=== PATIENT | female | born 1970 | race Hispanic/Latino ===

== ENCOUNTER 2024-03-27 17:55 | Emergency (ER) | payer BC ==
[~2024-03-27] VITALS: Ht 157.5 cm; Wt 83.9 kg
[2024-03-27 18:38] LABS: BASOPHILS % 0.4 % (0.0-1.0); EOSINOPHILS # (AUTO) 0.2 (0.0-0.4); EOSINOPHILS % 1.7 % (0.0-6.0); HEMATOCRIT 43.6 % (34.2-44.1); HEMOGLOBIN 13.7 g/dL (12.0-16.0); LYMPHOCYTES # (AUTO) 5.4 (1.0-3.2); LYMPHOCYTES % 47.5 % (18.0-39.1); MEAN CORPUSCULAR HEMOGLOBIN 30.2 pg (28-32); MEAN CORPUSCULAR HGB CONC 31.4 g/dL (31-35); MONOCYTES # (AUTO) 0.7 (0.2-0.8); MONOCYTES % 5.7 % (4.4-11.3); NEUTROPHILS # (AUTO) 5.1 (2.1-6.9); NEUTROPHILS % 44.5 % (38.7-80.0); PLATELET COUNT 305 x10e3/uL (140-360); RED BLOOD COUNT 4.54 x10e6/uL (3.6-5.1); RED CELL DISTRIBUTION WIDTH 11.9 % (11.7-14.4); WHITE BLOOD COUNT 11.38 x10e3/uL (4.8-10.8)
[2024-03-27 18:52] LABS: ALANINE AMINOTRANSFERASE 33 IU/L (0-55); ALBUMIN 4.4 g/dL (3.5-5.0); ALBUMIN/GLOBULIN RATIO 1.2 (0.8-2.0); ALKALINE PHOSPHATASE 97 IU/L (40-150); ANION GAP 17.5 mmol/L (8-16); BILIRUBIN,TOTAL 1.1 mg/dL (0.2-1.2); BLOOD UREA NITROGEN 16 mg/dL (7-26); BUN/CREATININE RATIO 23 (6-25); CALCIUM 10.7 mg/dL (8.4-10.2); CARBON DIOXIDE 22 mmol/L (22-29); CHLORIDE 103 mmol/L (98-107); CREATINE KINASE 83 IU/L (29-168); EST GLOMERULAR FILTRATION RATE 103 ML/MIN (>=60); GLUCOSE 111 mg/dL (74-118); POTASSIUM 3.5 mmol/L (3.5-5.1); SODIUM 139 mmol/L (136-145); TOTAL PROTEIN 8.1 g/dL (6.5-8.1)
[2024-03-27 19:00] LABS: TROPONIN I < 0.001 ng/mL (0-0.300)
[2024-03-27 19:10] VITALS: PULSE 83; RESP 15; TEMP 98
[2024-03-27] MEDS: KETOROLAC TROMETHAMINE 30 MG/ML VIAL IV STA (19:15)
[2024-03-27] MEDS ORDERED: NAPROSYN500 MG PO (20:06)
[2024-03-27 20:19] VITALS: BP 120/76; PULSE 85; RESP 15; TEMP 97.7; O2SAT 97
[2024-03-27 20:22] LABS: LYMPHOCYTES % (MANUAL) 40 % (19-48); MONOCYTES % (MANUAL) 7 % (3.4-9.0); NEUTROPHILS % (MANUAL) 53 % (40-74); PLATELET ESTIMATE ADEQUATE; PLATELET MORPHOLOGY COMMENT NORMAL; RBC MORPHOLOGY COMMENT NORMAL
== END 2024-03-27 20:25 | disposition home or self-care (01) ==
LOC: ER 18:26
DX: R07.89 Other chest pain (principal); I10 Essential (primary) hypertension; E11.9 Type 2 diabetes mellitus without complications; E78.5 Hyperlipidemia, unspecified; E78.00 Pure hypercholesterolemia, unspecified
CPT/HCPCS: 36415; 71045; 80053; 82550; 84484; 85025; 85379; 99284; J1885; 93005

== ENCOUNTER 2024-08-12 23:10 | Emergency (ER) | payer BC ==
[~2024-08-12] VITALS: Ht 160 cm; Wt 84.8 kg
[~2024-08-12 23:10] MED LIST: NAPROSYN500 MG PO
[2024-08-12 23:50] VITALS: PULSE 72; RESP 20; TEMP 98.4
[2024-08-13] MEDS: ONDANSETRON HCL 4 MG ORAL DISINTEGRATING TAB PO ONE (00:09)
[2024-08-13 01:08] VITALS: BP 135/91; O2SAT 100
== END 2024-08-13 01:09 | disposition home or self-care (01) ==
LOC: ER 23:57
DX: I10 Essential (primary) hypertension (principal); E11.9 Type 2 diabetes mellitus without complications; E78.5 Hyperlipidemia, unspecified; F41.9 Anxiety disorder, unspecified; M19.09 Primary osteoarthritis, other specified site; R94.31 Abnormal electrocardiogram [ECG] [EKG]
CPT/HCPCS: 93005; 99283; Q0162

== ENCOUNTER 2024-12-29 20:03 | Emergency (ER) | payer BC | END 2024-12-29 20:59 | disposition left against medical advice (07) | LOC: ER 20:36 | DX: R50.9 Fever, unspecified (principal) ==